=== PATIENT | male | born 1975 | race Caucasian/White ===

== ENCOUNTER → 2018-07-06 | Outpatient (CLI) | payer OTHER ==
--- NOTE | 2018-07-06 18:14 | XR ---
EXAMINATION TYPE: XR ankle complete RT DATE OF EXAM: 07/06/2018 COMPARISON: NONE HISTORY: Pain TECHNIQUE: 3 views FINDINGS: There is an Achilles calcaneal spur. I see no fracture nor dislocation. Ankle mortise is an atomic. IMPRESSION: No acute abnormality of the right ankle.
--- NOTE | 2018-07-06 18:15 | XR ---
EXAMINATION TYPE: XR tibia fibula RT DATE OF EXAM: 07/06/2018 COMPARISON: NONE HISTORY: Pain TECHNIQUE: 4 views FINDINGS: There is an Achilles calcaneal spur. Tibia and fibula appear intact. I see no fracture nor dislocation. Knee joint is intact. IMPRESSION: No acute abnormality of the right tibia and fibula.
--- NOTE | 2018-07-06 18:17 | XR ---
EXAMINATION TYPE: XR foot complete RT DATE OF EXAM: 07/06/2018 COMPARISON: NONE HISTORY: Foot pain TECHNIQUE: 3 views FINDINGS: I see no fracture nor dislocation. Joint spaces are normal. There are no erosions. There is small Achilles calcaneal spur. IMPRESSION: Negative right foot exam.
== END ==
LOC: RADXRMAIN 17:34
PROVIDERS: ATTEND Emergency Medicine
DX: S93.401A Sprain of unspecified ligament of right ankle, initial encounter (principal); S93.601A Unspecified sprain of right foot, initial encounter; M79.604 Pain in right leg

== ENCOUNTER 2019-06-11 06:38 | Emergency (ER) | payer OTHER ==
--- NOTE | 2019-06-11 06:53 | ED ---
Fall HPI - General Chief Complaint: Fall Stated Complaint: [facility] - right side back injury Time Seen by Provider: 06/11/19 06:46 Source: patient, RN notes reviewed Mode of arrival: ambulatory Limitations: no limitations - History of Present Illness Initial Comments: This a 44-year-old male presents emergency Department chief complaint of slip, fall and back pain. She states that he slipped on some hot packs no yesterday in the parking lot at work. Patient states that he has some pain states he went home. Patient states that the pain did improve after some Tylenol. He denies any bowel bladder incontinence or retention. No history of back issues. Patient states that he did have some pain that radiate down his right leg but that has also improved. Patient states that he reported to work and the symptoms for evaluation. - Related Data Home Medications Medication Instructions Recorded Confirmed Ramipril 2.5 mg PO DAILY 06/11/19 06/11/19 Allergies Allergy/AdvReac Type Severity Reaction Status Date / Time No Known Allergies Allergy Verified 06/11/19 07:31 Review of Systems ROS Statement: Those systems with pertinent positive or pertinent negative responses have been documented in the HPI. ROS Other: All systems not noted in ROS Statement are negative. Past Medical History Past Medical History: Hypertension Additional Past Medical History / Comment(s): MS History of Any Multi-Drug Resistant Organisms: None Reported Past Surgical History: Hernia Repair, Orthopedic Surgery Past Psychological History: No Psychological Hx Reported Smoking Status: Never smoker Past Alcohol Use History: Occasional Past Drug Use History: None Reported General Exam Limitations: no limitations General appearance: alert, in no apparent distress Head exam: Present: atraumatic, normocephalic, normal inspection Eye exam: Present: normal appearance, PERRL, EOMI. Absent: scleral icterus, conjunctival injection, periorbital swelling Respiratory exam: Present: normal lung sounds bilaterally. Absent: respiratory distress, wheezes, rales, rhonchi, stridor Cardiovascular Exam: Present: regular rate, normal rhythm, normal heart sounds. Absent: systolic murmur, diastolic murmur, rubs, gallop, clicks GI/Abdominal exam: Present: soft, normal bowel sounds. Absent: distended, tenderness, guarding, rebound, rigid Extremities exam: Present: normal inspection, full ROM, normal capillary refill, other (Lower extremity strength equal bilaterally, neurovascular intact). Absent: tenderness, pedal edema, joint swelling, calf tenderness Back exam: Present: normal inspection, full ROM, tenderness (Mild right lumbar), paraspinal tenderness. Absent: vertebral tenderness Neurological exam: Present: alert, oriented X3, CN II-XII intact, reflexes normal. Absent: motor sensory deficit Skin exam: Present: warm, dry, intact, normal color. Absent: rash Course Vital Signs 06/11/19 06:46 Temperature 97.4 F L Pulse Rate 88 Respiratory 18 Rate Blood Pressure 131/92 O2 Sat by Pulse 94 L Oximetry Medical Decision Making - Medical Decision Making X-ray shows mild wedging of L1 questionable age. Patient is neurovascular intact. Patient will follow up with [facility] and Dr. Jo. I discussed no exce ssive lifting twisting or bending. Disposition Clinical Impression: Fall, Compression fracture Disposition: HOME SELF-CARE Condition: Stable Instructions (If sedation given, give patient instructions): Vertebral Compression Fracture (ED) Additional Instructions: Please return to the Emergency Department if symptoms worsen or any other concerns. Is patient prescribed a controlled substance at d/c from ED?: No Referrals: Con Polanco DO [STAFF PHYSICIAN] - 1-2 days Lester Jo DO [Doctor of Osteopathic Medicine] - 1-2 days Time of Disposition: 08:17
--- NOTE | 2019-06-11 08:13 | XR ---
Lumbar spine HISTORY: Trauma and pain 3 views of the lumbar spine Lumbar vertebral bodies show preserved height, alignment, and bone mineralization with the exception of some mild anterior wedging at L1, no evident retropulsion. Disc spaces are remarkable for some los s of disc height at L5-S1, L4-5. There is multilevel spondylosis present. Sclerosis present in the po sterior elements of the lumbar spine. IMPRESSION: Mild anterior wedging at superior endplate at L1 of questionable age and significance. De generative disc disease and facet arthropathy. Bone scan or MRI may be of benefit for further evaluat ion.
--- NOTE | 2019-06-11 09:02 | CT ---
EXAMINATION TYPE: CT lumbar spine wo con DATE OF EXAM: 06/11/2019 8:34 AM COMPARISON: 06/11/2019 x-rays HISTORY: Low back pain post fall CT DLP: 1157.6 mGycm Automated exposure control for dose reduction was used. TECHNIQUE: Unenhanced CT of the lumbar spine was performed. Bone and soft tissue window settings are submitted as well as coronal and sagittal reconstructions. FINDINGS: There is very mild vertebral body height loss of L1 (less than 10%). Remainder the lumbar s pine vertebral bodies maintain normal vertebral body heights and alignment. Disc bulge is seen at L4- L5. Evaluation for disc herniation would be better suited with MRI. Partially visualized at least mod erate hiatal hernia. 1.7 cm cortical renal cysts on the left. Appendix is within normal limits. Colon is largely decompressed. L1-L2: Small broad-based disc bulge without spinal canal stenosis nor neural foraminal narrowing. L2-L3: Broad-based disc bulge and facet arthropathy resulting in mild bilateral neural foraminal narr owing without spinal canal stenosis. L3-L4: Broad-based disc bulge and facet arthropathy result in mild bilateral narrowing and mild spina l canal stenosis. L4-L5: Mild to moderate spinal canal stenosis secondary to a broad-based disc bulge and facet arthrop athy. Evaluation for disc herniation would be better suited with MRI. Mild to moderate bilateral neur al foraminal narrowing. L5-S1: Facet arthropathy and broad-based disc bulge are seen resulting in minimal bilateral neural fo raminal narrowing without spinal canal stenosis. IMPRESSION: 1. Demonstration of a very mild compression deformity with vertebral body height loss of less than 10 % of L1. No retropulsion is seen. No involvement of the posterior elements. No spinal canal stenosis at this level. 2. At least broad-based disc bulge at L4-L5 creating mild to moderate spinal canal stenosis. Evaluati on for disc herniation with a better suited with MRI. Mild spinal canal stenosis is also suggested at L3-L4 on the basis of degenerative disc disease and facet arthropathy. Mild multilevel degenerative disc disease of the lumbar spine throughout.
[2019-06-11 09:14] VITALS: BP 129/83; PULSE 81; RESP 19; TEMP 97.8
== END 2019-06-11 09:14 | disposition home or self-care (01) ==
LOC: EC 06:38
DX: S32.010A Wedge compression fracture of first lumbar vertebra, initial encounter for closed fracture (principal); I10 Essential (primary) hypertension; Z79.899 Other long term (current) drug therapy; W01.0XXA Fall on same level from slipping, tripping and stumbling without subsequent striking against object, initial encounter; Y92.69 Other specified industrial and construction area as the place of occurrence of the external cause; Y99.0 Civilian activity done for income or pay
CPT/HCPCS: 72100; 72131; 99284

== ENCOUNTER 2021-05-12 08:19 | Day surgery (SDC) | payer BC, OTHER ==
[2021-05-07 11:05] VITALS: BMI 30.4
--- NOTE | 2021-05-12 08:02 | P.GSHP ---
History of Present Illness H&P Date: 05/12/21 CHIEF COMPLAINT: GERD HISTORY OF PRESENT ILLNESS: The patient is a 46-year-old male who presents reports gastroesophageal reflux disease. Upper endoscopy was offered for further evaluation and management. PAST MEDICAL HISTORY: Please see list. PAST SURGICAL HISTORY: Please see list. MEDICATIONS: Please see list. ALLERGIES: Please see list. SOCIAL HISTORY: No illicit drug use FAMILY HISTORY: No reports of Crohn disease or ulcerative colitis. REVIEW OF ORGAN SYSTEMS: CONSTITUTIONAL: No reports of fevers or chills. GI: Denies any blood in stools or constipation. PHYSICAL EXAM: VITAL SIGNS: Stable GENERAL: Well-developed and pleasant in no acute distress. HEENT: No scleral icterus. Extraocular movements grossly intact. Moist buccal mucosa. NECK: Supple without lymphadenopathy. CHEST: Unlabored respirations. Equal bilateral excursions. CARDIOVASCULAR: Regular rate and rhythm. Distal 2+ pulses. ABDOMEN: Soft, nondistended. MUSCULOSKELETAL: No clubbing, cyanosis, or edema. ASSESSMENT: 1. Gastroesophageal reflux disease PLAN: 1. Recommend proceeding with an upper endoscopy Past Medical History Past Medical History: GERD/Reflux, Hypertension, Neurologic Disorder Additional Past Medical History / Comment(s): Multiple Sclerosis. hx aspiration History of Any Multi-Drug Resistant Organisms: None Reported Past Surgical History: Hernia Repair, Orthopedic Surgery Additional Past Surgical History / Comment(s): rt knee repair Past Anesthesia/Blood Transfusion Reactions: Previous Problems w/ Anesthesia Additional Past Anesthesia/Blood Transfusion Reaction / Comment(s): woke up during MRI. strong gag reflux Smoking Status: Never smoker Medications and Allergies Home Medications Medication Instructions Recorded Confirmed Type ramipriL [Ramipril] 2.5 mg PO DAILY 06/11/19 05/07/21 History Allergies Allergy/AdvReac Type Severity Reaction Status Date / Time No Known Allergies Allergy Verified 05/07/21 10:55
[2021-05-12] MEDS ORDERED: LACTATED RINGERS 1,000 ML IV SCH (08:31)
[2021-05-12] MEDS ORDERED: LIDOCAINE 1% (10MG/ML) FOR IV START INTRADERMA PRN (08:31)
[2021-05-12 08:50] VITALS: TEMP 97.7
[2021-05-12] MEDS ORDERED: LIDOCAINE 1% INJ 10MG/ML (20 ML MDV) ONE (09:26)
[2021-05-12] MEDS ORDERED: PROPOFOL 10 MG/ML 20 ML VIAL IV ONE (09:26)
[2021-05-12 10:03] VITALS: BP 137/94; PULSE 76; RESP 20
--- NOTE | 2021-05-12 10:14 | P.PCN ---
Date of Procedure: 05/12/21 Description of Procedure: PREOPERATIVE DIAGNOSIS: Gastroesophageal reflux disease. POSTOPERATIVE DIAGNOSIS: Gastritis. Gastroesophageal reflux disease. Diaphragmatic hiatal hernia OPERATION: Esophagogastroduodenoscopy with biopsies along antrum and duodenum SURGEON: Leeanne Noel MD ANESTHESIA: MAC. INDICATIONS: The patient is a 44-year-old male who presents with a history of reflux disease. Benefits and risks of the procedure were described. Informed consent was obtained. DESCRIPTION: The patient was brought into the endoscopy suite and laid in the left lateral decubitus position. An Olympus gastroscope was passed along the posterior oropharynx down to the distal esophagus where the squamocolumnar junction was encountered at 40 cm from the incisors. The stomach was entered and no bile reflux was found. Additional findings are listed below. Biopsies with cold forceps were obtained of the antrum. The first through third portion of the duodenum was examined and unremarkable. Retroflexion of the scope confirmed Hill grade 2 lower esophageal valve. The squamocolumnar junction demonstrated LA grade A erosive esophagitis. The stomach was desufflated. The patient tolerated the procedure well. FINDINGS: Squamocolumnar junction 40 cm from the incisors. Diaphragmatic hiatus at 43 cm. Hiatal hernia, 3 cm Hill grade 2 lower esophageal valve. LA grade A erosive esophagitis. No active duodenitis. Chronic gastritis RECOMMENDATIONS: 1. Omeprazole 40 mg daily for 2 weeks prescribed Plan - Discharge Summary Discharge Rx Participant: No New Discharge Prescriptions: New Omeprazole [PriLOSEC] 40 mg PO DAILY #14 cap Continue ramipriL [Ramipril] 2.5 mg PO DAILY Discharge Medication List ramipriL [Ramipril] 2.5 mg PO DAILY 06/11/19 [History] Omeprazole [PriLOSEC] 40 mg PO DAILY #14 cap 05/12/21 [Rx] Follow up Appointment(s)/Referral(s): Leeanne Noel MD [STAFF PHYSICIAN] - 05/25/21 Patient Instructions/Handouts: *Surgery [facility] - (Anesthesia) Endoscopy Discharge Instructions, Upper Endoscopy (DC), Hiatal Hernia (GEN), Gastroesophageal Reflux Disease (DC) Discharge Disposition: HOME SELF-CARE
== END 2021-05-12 10:40 | disposition home or self-care (01) ==
LOC: ORWHC2ENDO 08:19
PROVIDERS: ATTEND Surgery Plastic and Reconstructive Surgery
DX: K29.50 Unspecified chronic gastritis without bleeding (principal); K21.9 Gastro-esophageal reflux disease without esophagitis; K22.10 Ulcer of esophagus without bleeding; K44.9 Diaphragmatic hernia without obstruction or gangrene; I10 Essential (primary) hypertension; G35 Multiple sclerosis; Z98.890 Other specified postprocedural states; Z79.899 Other long term (current) drug therapy; F41.9 Anxiety disorder, unspecified
CPT/HCPCS: 88305; 43239; J2001; J2704